=== PATIENT | male | born 1960 | race Caucasian/White ===

== ENCOUNTER 2019-02-06 04:40 | Emergency (ER) | payer OTHER ==
[2019-02-06] MEDS ORDERED: Sodium Chloride 0.9% 1000 ML 1,000 ML ONE (05:09)
--- NOTE | 2019-02-06 05:21 | ERPHSYRPT ---
- History of Present Illness Time Seen by Provider: 02/06/19 05:00 Historian: patient, family Exam Limitations: no limitations Patient Subjective Stated Complaint: Chest pain Triage Nursing Assessment: Patient ambulated into ED and transferred self to bed. Patient A+O X3. Patient's skin pink, warm and dry. Patient complains of chest pain intermittent sharp pain 4/10 that radiates down left arm that is constant sharp. Patient states pain in left arm started around 1800 with chest pain started prior to arrival. Patient's lungs clear a/p yakelin. No edema noted. Heart tones audible. No shortness of breath noted. Patient states he has had diarrhea for the past several days. Physician History: 58 y/o obese white male with h/o of htn presents with first with left upper ext at 1800 last pm. his left upper ext pain persisted. pt went to sleep and then he began having sharp left ant cp. pt denies soa. pt states he has had flu like sx for 3 weeks of intermittent nausea and diarrhea. pt did have a more formed stool yesterday. Timing/Duration: yesterday Activities at Onset: none Location: substernal Chest Pain Radiation: arm (left) Severity of Pain-Max: mild Severity of Pain-Current: mild Modifying Factors: Improves With: nothing Associated Symptoms: denies symptoms Prior Chest Pain/Cardiac Workup: no prior cardiac workup Nitro Today/Relief: no nitro taken today Aspirin Treatment Today: no aspirin today Allergies/Adverse Reactions: No Known Drug Allergies Allergy (Verified 02/06/19 04:55) Home Medications: Carvedilol 6.25 mg [Coreg 6.25 MG] 6.25 mg PO BID 06/07/12 [History] Esomeprazole Magnesium [Nexium] 40 mg PO DAILY 06/07/12 [History] Aspirin 81 gm Chew [Baby Aspirin 81 mg Chew] 1 tab PO DAILY 02/06/19 [ History] Losartan/Hydrochlorothiazide [Losartan-Hctz 100-12.5 mg Tab] 1 tab PO DAILY 12/18 [History] Hx Influenza Vaccination/Date Given: No Hx Pneumococcal Vaccination/Date Given: No Immunizations Up to Date: Yes - Review of Systems Constitutional: No Symptoms Eyes: No Symptoms Ears, Nose, & Throat: No Symptoms Respiratory: No Symptoms Cardiac: Chest Pain Abdominal/Gastrointestinal: No Symptoms Genitourinary Symptoms: No Symptoms Musculoskeletal: No Symptoms Skin: No Symptoms Neurological: No Symptoms Psychological: No Symptoms Endocrine: No Symptoms Hematologic/Lymphatic: No Symptoms Immunological/Allergic: No Symptoms All Other Systems: Reviewed and Negative - Past Medical History Pertinent Past Medical History: Yes Neurological History: No Pertinent History ENT History: No Pertinent History Cardiac History: Hypertension Respiratory History: Sleep Apnea Endocrine Medical History: No Pertinent History Musculoskeletal History: Fractures GI Medical History: GERD History: No Pertinent History Psycho-Social History: No Pertinent History Male Reproductive Disorders: No Pertinent History - Past Surgical History Past Surgical History: Yes Neuro Surgical History: No Pertinent History Cardiac: No Pertinent History Respiratory: No Pertinent History Gastrointestinal: No Pertinent History Genitourinary: No Pertinent History Musculoskeletal: Orthopedic Surgery, Other Male Surgical History: No Pertinent History Other Surgical History: left foot and leg left hand - Social History Smoking Status: Former smoker Exposure to second hand smoke: Yes Drug Use: none Patient Lives Alone: No - Nursing Vital Signs Nursing Vital Signs: Initial Vital Signs Temperature 98.6 F 02/06/19 04:44 Pulse Rate 60 02/06/19 04:44 Respiratory Rate 19 02/06/19 04:44 Blood Pressure 143/79 02/06/19 04:44 O2 Sat by Pulse Oximetry 97 02/06/19 04:44 Pain Scale Pain Intensity 2 - Physical Exam General Appearance: no apparent distress Eye Exam: PERRL/EOMI Ears, Nose, Throat Exam: normal ENT inspection, moist mucous membranes Neck Exam: normal inspection, non-tender, supple, full range of motion Respiratory Exam: normal breath sounds, chest tenderness, lungs clear, airway intact, No respiratory distress Cardiovascular Exam: regular rate/rhythm, normal heart sounds, normal peripheral pulses Gastrointestinal/Abdomen Exam: soft, normal bowel sounds, No tenderness Rectal Exam: not done Back Exam: normal inspection, normal range of motion, No CVA tenderness, No vertebral tenderness Extremity Exam: normal inspection, normal range of motion, pelvis stable Neurologic Exam: alert, oriented x 3, cooperative, help desk support specialist II-XII nml as tested Skin Exam: normal color, warm, dry Lymphatic Exam: No adenopathy SpO2 Interpretation: normal SpO2: 97 O2 Delivery: Room Air - Course Nursing assessment & vital signs reviewed: Yes EKG Interpreted by Me: RATE (57), Sinus Rhythm, NORMAL AXIS, NORMAL INTERVALS, NORMAL QRS, Other (no comparison ekg. left ant fascicular block ) Ordered Tests: Active Orders 24 hr Category Date Time Status [facility] STAT Care 02/06/19 05:29 Active EKG-ER Only STAT Care 02/06/19 05:25 Active IV Insertion STAT Care 02/06/19 05:25 Active Pulse Oximetry (ED) STAT Care 02/06/19 05:25 Active CHEST 1 VIEW (PORTABLE) Stat Exams 02/06/19 05:28 Taken CBC W DIFF Stat Lab 02/06/19 05:00 Completed CMP Stat Lab 02/06/19 05:00 Completed D-DIMER QUANTITATION Stat Lab 02/06/19 05:00 Completed NT PRO BNP Stat Lab 02/06/19 05:00 Completed TROPONIN Q3H Lab 02/06/19 05:00 Completed TROPONIN Q3H Lab 02/06/19 08:30 Ordered TROPONIN Q3H Lab 02/06/19 11:30 Ordered TROPONIN Q3H Lab 02/06/19 14:30 Ordered TROPONIN Q3H Lab 02/06/19 17:30 Ordered Medication Summary Generic Name Dose Route Start Last Admin Trade Name Freq PRN Reason Stop Dose Admin Sodium Chloride 1,000 mls @ 100 mls/hr 02/06/19 05:30 02/06/19 05:37 Sodium Chloride 0.9% 1000 Ml IV 03/08/19 05:29 100 mls/hr .Q10H LEXII Administration Discontinued Medications Generic Name Dose Route Start Last Admin Trade Name Freq PRN Reason Stop Dose Admin Aspirin 324 mg 02/06/19 05:25 02/06/19 05:38 Baby Aspirin 81 Mg Chew PO 02/06/19 05:26 324 mg STAT ONE Administration Aspirin Confirm 02/06/19 06:33 Baby Aspirin 81 Mg Chew Administered 02/06/19 06:34 Dose 324 mg .ROUTE .STK-MED ONE Sodium Chloride Confirm 02/06/19 05:09 Sodium Chloride 0.9% 1000 Ml Administered 02/06/19 05:10 Dose 1,000 mls @ ud .ROUTE .STK-MED ONE Lab/Rad Data: Laboratory Result Diagrams 02/06/19 05:00 02/06/19 05:00 Laboratory Results 02/06/19 02/06/19 02/06/19 Range/Units 06:01 05:00 05:00 WBC (4.0-10.5) K/mm3 RBC (4.1-5.6) M/mm3 Hgb (12.5-18.0) gm/dl Hct (42-50) % MCV (78-100) fl MCH (26-32) pg MCHC (32-36) g/dl RDW (11.5-14.0) % Plt Count (150-450) K/mm3 MPV (6-9.5) fl Gran % (36.0-66.0) % Eos # (Auto) (0-0.5) Absolute Lymphs (auto) (1.0-4.6) Absolute Monos (auto) (0.0-1.3) Lymphocytes % (24.0-44.0) % Monocytes % (0.0-12.0) % Eosinophils % (0.00-5.0) % Basophils % (0.0-0.4) % Absolute Granulocytes (1.4-6.9) Basophils # (0-0.4) D-Dimer 444 (215-500) ng/mL Sodium (137-145) mmol/L Potassium (3.5-5.1) mmol/L Chloride (98-107) mmol/L Carbon Dioxide (22-30) mmol/L Anion Gap (5-15) MEQ/L BUN (9-20) mg/dL Creatinine (0.66-1.25) mg/dL Estimated GFR ML/MIN Glucose (74-106) mg/dL Calcium (8.4-10.2) mg/dL Total Bilirubin (0.2-1.3) mg/dL AST (17-59) U/L ALT (0-50) U/L Alkaline Phosphatase (38-126) U/L Troponin I < 0.012 (0.000-0.034) ng/mL NT-Pro-B Natriuret Pep (0-900) pg/mL Serum Total Protein (6.3-8.2) g/dL Albumin (3.5-5.0) g/dL Influenza Type A Ag NEGATIVE (NEGATIVE) Influenza Type B Ag NEGATIVE (NEGATIVE) RSV (PCR) NEGATIVE (Negative) 02/06/19 02/06/19 Range/Units 05:00 05:00 WBC 9.5 (4.0-10.5) K/mm3 RBC 5.21 (4.1-5.6) M/mm3 Hgb 14.9 (12.5-18.0) gm/dl Hct 44.5 (42-50) % MCV 85.4 (78-100) fl MCH 28.6 (26-32) pg MCHC 33.5 (32-36) g/dl RDW 14.2 H (11.5-14.0) % Plt Count 260 (150-450) K/mm3 MPV 9.6 H (6-9.5) fl Gran % 67.4 H (36.0-66.0) % Eos # (Auto) 0.32 (0-0.5) Absolute Lymphs (auto) 1.88 (1.0-4.6) Absolute Monos (auto) 0.85 (0.0-1.3) Lymphocytes % 19.9 L (24.0-44.0) % Monocytes % 9.0 (0.0-12.0) % Eosinophils % 3.4 (0.00-5.0) % Basophils % 0.3 (0.0-0.4) % Absolute Granulocytes 6.37 (1.4-6.9) Basophils # 0.03 (0-0.4) D-Dimer (215-500) ng/mL Sodium 139 (137-145) mmol/L Potassium 3.7 (3.5-5.1) mmol/L Chloride 102 (98-107) mmol/L Carbon Dioxide 26 (22-30) mmol/L Anion Gap 14.9 (5-15) MEQ/L BUN 15 (9-20) mg/dL Creatinine 0.80 (0.66-1.25) mg/dL Estimated GFR > 60.0 ML/MIN Glucose 106 (74-106) mg/dL Calcium 8.2 L (8.4-10.2) mg/dL Total Bilirubin 0.80 (0.2-1.3) mg/dL AST 31 (17-59) U/L ALT 41 (0-50) U/L Alkaline Phosphatase 84 (38-126) U/L Troponin I (0.000-0.034) ng/mL NT-Pro-B Natriuret Pep 28.4 (0-900) pg/mL Serum Total Protein 7.6 (6.3-8.2) g/dL Albumin 4.1 (3.5-5.0) g/dL Influenza Type A Ag (NEGATIVE) Influenza Type B Ag (NEGATIVE) RSV (PCR) (Negative) - Progress Progress: improved Air Movement: good Progress Note: 02/06/19 06:23 cxr-mild cardiomegaly. no acute process. 02/06/19 06:24 pt states no cp and feeling better Blood Culture(s) Obtained: No Antibiotics given: No Counseled pt/family regarding: lab results, diagnosis, need for follow-up, rad results - Departure Departure Disposition: Home Clinical Impression: Chest pain Condition: Stable Critical Care Time: No Referrals: PERNELL CHAENY [CONSULTING PHYSICIAN] - Additional Instructions: drink plenty of fluids. follow up with primary doctor for further management.
[2019-02-06 05:36] LABS: Absolute Neutrophil Ct (ANC) 6.37 (1.4-6.9); BASOPHIL % 0.3 % (0.0-0.4); Basophil (Absolute #) 0.03 (0-0.4); Eosinophil % 3.4 % (0.00-5.0); Eosinophil (Absolute #) 0.32 (0-0.5); Hematocrit 44.5 % (42-50); Hemoglobin 14.9 gm/dl (12.5-18.0); Lymphocyte (Absolute #) 1.88 (1.0-4.6); Lymphocytes % 19.9 % (24.0-44.0); Mean Cell Volume 85.4 fl (78-100); Mean Corpuscular Hemoglobin 28.6 pg (26-32); Mean Corpuscular Hgb Concent. 33.5 g/dl (32-36); Mean Platelet Volume 9.6 fl (6-9.5); Monocyte (Absolute #) 0.85 (0.0-1.3); Neutrophil % 67.4 % (36.0-66.0); Platelet Count 260 K/mm3 (150-450); Red Blood Count 5.21 M/mm3 (4.1-5.6); Red Cell Distribution Width 14.2 % (11.5-14.0); White Blood Count 9.5 K/mm3 (4.0-10.5)
[2019-02-06] MEDS: Sodium Chloride 0.9% 1000 ML 1,000 ML IV SCH (05:37)
[2019-02-06] MEDS: BABY ASPIRIN 81 MG CHEW PO ONE (05:38)
[2019-02-06 05:57] LABS: ALBUMIN 4.1 g/dL (3.5-5.0); ALKALINE PHOSPHATASE 84 U/L (38-126); ANION GAP 14.9 MEQ/L (5-15); BLOOD UREA NITROGEN 15 mg/dL (9-20); CHLORIDE 102 mmol/L (98-107); Calcium 8.2 mg/dL (8.4-10.2); Carbon Dioxide 26 mmol/L (22-30); Glucose 106 mg/dL (74-106); NT PRO BNP 28.4 pg/mL (0-900); Potassium 3.7 mmol/L (3.5-5.1); SGOT/AST 31 U/L (17-59); SGPT/ALT 41 U/L (0-50); SODIUM 139 mmol/L (137-145); Total Protein 7.6 g/dL (6.3-8.2)
[2019-02-06 06:05] VITALS: BP 112/64; PULSE 56
[2019-02-06 06:25] VITALS: O2SAT 97
[2019-02-06] MEDS ORDERED: BABY ASPIRIN 81 MG CHEW ONE (06:33)
[2019-02-06 06:39] LABS: INFLUENZA A NEGATIVE (NEGATIVE); INFLUENZA B NEGATIVE (NEGATIVE); RESPIRATORY SYNCTIAL VIRUS NEGATIVE (Negative)
--- NOTE | 2019-02-06 09:38 | XRAY ---
Indication: Chest pain. Comparison: August 16, 2017. Portable apical lordotic chest remains clear. Heart is borderline enlarged. Bony thorax intact again with mild degenerative changes. Impression: Borderline cardiomegaly in a otherwise nonacute chest.
== END 2019-02-06 07:02 | disposition home or self-care (01) ==
LOC: ED 04:40
DX: R07.9 Chest pain, unspecified (principal)
CPT/HCPCS: 36000; 36415; 71045; 80053; 83880; 84484; 85025; 85379; 87631; 93005; 93041; 94760; 96360; 99284; A9270-GY

== ENCOUNTER 2020-12-26 13:36 | Emergency (ER) | payer OTHER ==
--- NOTE | 2020-12-26 13:40 | ERPHSYRPT ---
- History of Present Illness Time Seen by Provider: 12/26/20 13:40 Historian: patient, family Exam Limitations: no limitations Physician History: This is a 60-year-old obese white male patient of Dr. Da Silva who presents with sudden onset of sharp substernal central chest pain anteriorly without radiation and the onset occurred approximately 11:00 AM. Patient has a history of hypertension and gastroesophageal reflux disease. He does see a boat carpenter mechanic, Dr. Damon. He also has history of sleep apnea. He is obese. Patient has never had a myocardial infarction or any known coronary artery disease. Timing/Duration: today Activities at Onset: none Quality: aching Location: substernal, central Chest Pain Radiation: no radiation Severity of Pain-Max: mild Severity of Pain-Current: mild Modifying Factors: Improves With: nothing Associated Symptoms: denies symptoms Nitro Today/Relief: no nitro taken today Aspirin Treatment Today: no aspirin today Allergies/Adverse Reactions: No Known Drug Allergies Allergy (Verified 12/26/20 13:38) Home Medications: Carvedilol 6.25 mg [Coreg 6.25 MG] 6.25 mg PO BID 06/07/12 [History] Esomeprazole Magnesium [Nexium] 40 mg PO DAILY 06/07/12 [History] Aspirin 81 gm Chew [Baby Aspirin 81 mg Chew] 1 tab PO DAILY 02/06/19 [History] Losartan/Hydrochlorothiazide [Losartan-Hctz 100-12.5 mg Tab] 1 tab PO DAILY 02/06/19 [History] Hx Influenza Vaccination/Date Given: No Hx Pneumococcal Vaccination/Date Given: No Travel Risk - International Travel Have you traveled outside of the country in past 3 weeks: No - Coronavirus Screening Are you exhibiting any of the following symptoms?: No Close contact with a COVID-19 positive Pt in past 14-21 Days: No - Vaccine Status Have you recieved a Covid-19 vaccination: No - Review of Systems Constitutional: No Symptoms Eyes: No Symptoms Ears, Nose, & Throat: No Symptoms Respiratory: No Symptoms Cardiac: Chest Pain Abdominal/Gastrointestinal: No Symptoms Genitourinary Symptoms: No Symptoms Musculoskeletal: No Symptoms Skin: No Symptoms Neurological: No Symptoms Psychological: No Symptoms Endocrine: No Symptoms Hematologic/Lymphatic: No Symptoms Immunological/Allergic: No Symptoms All Other Systems: Reviewed and Negative - Past Medical History Pertinent Past Medical History: Yes Neurological History: No Pertinent History ENT History: No Pertinent History Cardiac History: Hypertension Respiratory History: Sleep Apnea Endocrine Medical History: No Pertinent History Musculoskeletal History: Fractures GI Medical History: GERD History: No Pertinent History Psycho-Social History: No Pertinent History Male Reproductive Disorders: No Pertinent History - Past Surgical History Past Surgical History: Yes Neuro Surgical History: No Pertinent History Cardiac: No Pertinent History Respiratory: No Pertinent History Gastrointestinal: No Pertinent History Genitourinary: No Pertinent History Musculoskeletal: Orthopedic Surgery, Other Male Surgical History: No Pertinent History Other Surgical History: left foot and leg left hand - Social History Smoking Status: Former smoker Exposure to second hand smoke: Yes Drug Use: none Patient Lives Alone: No - Nursing Vital Signs Nursing Vital Signs: Initial Vital Signs Temperature 98.2 F 12/26/20 13:39 Pulse Rate 81 12/26/20 13:39 Respiratory Rate 27 H 12/26/20 13:39 Blood Pressure 172/81 12/26/20 13:39 O2 Sat by Pulse Oximetry 98 12/26/20 13:39 Pain Scale Pain Intensity 3 - Physical Exam General Appearance: no apparent distress, alert, anxiety, obese Eye Exam: PERRL/EOMI, eyes nml inspection Ears, Nose, Throat Exam: normal ENT inspection, moist mucous membranes Neck Exam: normal inspection, non-tender, supple, full range of motion Respiratory Exam: normal breath sounds, chest tenderness, lungs clear, airway intact, No respiratory distress Cardiovascular Exam: regular rate/rhythm, normal heart sounds, normal peripheral pulses Gastrointestinal/Abdomen Exam: soft, normal bowel sounds, No tenderness Rectal Exam: not done Back Exam: normal inspection, normal range of motion, No CVA tenderness, No vertebral tenderness Extremity Exam: normal inspection, normal range of motion, pelvis stable Neurologic Exam: alert, oriented x 3, cooperative, dairy equipment repairer II-XII nml as tested, normal mood/affect, nml cerebellar function, nml station & gait, sensation nml Skin Exam: normal color, warm, dry Lymphatic Exam: No adenopathy SpO2 Interpretation: normal O2 Delivery: Room Air - Course Nursing assessment & vital signs reviewed: Yes EKG Interpreted by Me: RATE, Sinus Rhythm (75), LAFB, NORMAL INTERVALS, NORMAL QRS, NORMAL ST-T, Other (No acute ischemic changes. There is persistent left anterior fascicular block when compared to EKG dated 02/06/2019.) Ordered Tests: Medication Summary Discontinued Medications Generic Name Dose Route Start Last Admin Trade Name Rylee PRN Reason Stop Dose Admin Aspirin 324 mg 12/26/20 14:08 12/26/20 14:21 Baby Aspirin 81 Mg Chew PO 12/26/20 14:09 324 mg STAT ONE Administration Aspirin Confirm 12/26/20 14:15 Baby Aspirin 81 Mg Chew Administered 12/26/20 14:16 Dose 324 mg .ROUTE .STK-MED ONE Sodium Chloride 1,000 mls @ 50 mls/hr 12/26/20 14:15 12/26/20 14:22 Sodium Chloride 0.9% 1000 Ml IV 01/25/21 14:14 50 mls/hr .Q20H LEXII Administration Sodium Chloride Confirm 12/26/20 14:15 Sodium Chloride 0.9% 1000 Ml Administered 12/26/20 14:16 Dose 1,000 mls @ ud .ROUTE .STK-MED ONE Morphine Sulfate 2 mg 12/26/20 14:08 12/26/20 14:22 Morphine Sulfate 2 Mg Inj IV 12/26/20 14:09 2 mg STAT ONE Administration Morphine Sulfate Confirm 12/26/20 14:15 Morphine Sulfate 2 Mg Inj Administered 12/26/20 14:16 Dose 2 mg .ROUTE .STK-MED ONE Nitroglycerin 0.4 mg 12/26/20 14:08 12/26/20 14:22 Nitrostat 0.4 Mg (Ed) SL 12/26/20 14:09 0.4 mg STAT ONE Administration Nitroglycerin Confirm 12/26/20 14:15 Nitrostat 0.4 Mg (Ed) Administered 12/26/20 14:16 Dose 0.4 mg SL .STK-MED ONE Ondansetron HCl 4 mg 12/26/20 14:08 12/26/20 14:22 Zofran 4 Mg/2 Ml Vial IV 12/26/20 14:09 4 mg STAT ONE Administration Ondansetron HCl Confirm 12/26/20 14:15 Zofran 4 Mg/2 Ml Vial Administered 12/26/20 14:16 Dose 4 mg .ROUTE .STK-MED ONE Lab/Rad Data: Laboratory Result Diagrams 12/26/20 13:50 12/26/20 13:50 Laboratory Results 12/26/20 12/26/20 12/26/20 Range/Units 13:50 13:50 13:50 WBC (4.0-10.5) K/mm3 RBC (4.1-5.6) M/mm3 Hgb (12.5-18.0) gm/dl Hct (42-50) % MCV (78-100) fl MCH (26-32) pg MCHC (32-36) g/dl RDW (11.5-14.0) % Plt Count (150-450) K/mm3 MPV (7.5-11.0) fl Gran % (36.0-66.0) % Eos # (Auto) (0-0.5) Absolute Lymphs (auto) (1.0-4.6) Absolute Monos (auto) (0.0-1.3) Lymphocytes % (24.0-44.0) % Monocytes % (0.0-12.0) % Eosinophils % (0.00-5.0) % Basophils % (0.0-0.4) % Absolute Granulocytes (1.4-6.9) Basophils # (0-0.4) PT 13.3 H (9.4-12.5) SECONDS INR 1.13 (0.8-3.0) D-Dimer 495 (215-500) ng/mL Sodium 142 (137-145) mmol/L Potassium 3.8 (3.5-5.1) mmol/L Chloride 102 (98-107) mmol/L Carbon Dioxide 26 (22-30) mmol/L Anion Gap 17.1 H (5-15) MEQ/L BUN 21 H (9-20) mg/dL Creatinine 1.00 (0.66-1.25) mg/dL Estimated GFR > 60.0 ML/MIN Glucose 132 H (74-106) mg/dL Calcium 9.3 (8.4-10.2) mg/dL Total Bilirubin 1.00 (0.2-1.3) mg/dL AST 24 (17-59) U/L ALT 18 (0-50) U/L Alkaline Phosphatase 76 (38-126) U/L Troponin I 0.076 H* (0.000-0.034) ng/mL NT-Pro-B Natriuret Pep 95.6 (0-900) pg/mL Serum Total Protein 7.9 (6.3-8.2) g/dL Albumin 4.6 (3.5-5.0) g/dL 12/26/20 Range/Units 13:50 WBC 10.3 (4.0-10.5) K/mm3 RBC 5.31 (4.1-5.6) M/mm3 Hgb 15.2 (12.5-18.0) gm/dl Hct 46.6 (42-50) % MCV 87.8 (78-100) fl MCH 28.6 (26-32) pg MCHC 32.6 (32-36) g/dl RDW 14.2 H (11.5-14.0) % Plt Count 275 (150-450) K/mm3 MPV 9.7 (7.5-11.0) fl Gran % 85.2 H (36.0-66.0) % Eos # (Auto) 0.22 (0-0.5) Absolute Lymphs (auto) 0.79 L (1.0-4.6) Absolute Monos (auto) 0.51 (0.0-1.3) Lymphocytes % 7.6 L (24.0-44.0) % Monocytes % 4.9 (0.0-12.0) % Eosinophils % 2.1 (0.00-5.0) % Basophils % 0.2 (0.0-0.4) % Absolute Granulocytes 8.80 H (1.4-6.9) Basophils # 0.02 (0-0.4) PT (9.4-12.5) SECONDS INR (0.8-3.0) D-Dimer (215-500) ng/mL Sodium (137-145) mmol/L Potassium (3.5-5.1) mmol/L Chloride (98-107) mmol/L Carbon Dioxide (22-30) mmol/L Anion Gap (5-15) MEQ/L BUN (9-20) mg/dL Creatinine (0.66-1.25) mg/dL Estimated GFR ML/MIN Glucose (74-106) mg/dL Calcium (8.4-10.2) mg/dL Total Bilirubin (0.2-1.3) mg/dL AST (17-59) U/L ALT (0-50) U/L Alkaline Phosphatase (38-126) U/L Troponin I (0.000-0.034) ng/mL NT-Pro-B Natriuret Pep (0-900) pg/mL Serum Total Protein (6.3-8.2) g/dL Albumin (3.5-5.0) g/dL - Progress Progress: improved, re-examined Air Movement: good Progress Note: 12/26/20 15:25 Chest x-ray shows no acute cardiopulmonary process. Medical decision making: This patient had abrupt onset of anterior chest pain that was sharp and measured to 5-6 out of 10 without radiation. His EKG does not show any acute ischemic changes. However his initial troponin has returned elevated at 0.076. Patient states with the treatment of aspirin, nitroglycerin and morphine his pain completely resolved. However, reevaluation at this time states that he does notice it returning at a level of 1-2 out of 10. We are attempting to transfer this patient to [facility] either [facility] or [facility] depending on who has beds. Blood Culture(s) Obtained: No Antibiotics given: No Counseled pt/family regarding: lab results, diagnosis, rad results - Departure Departure Disposition: Transfer Clinical Impression: Chest pain in adult, Hypertension, Elevated troponin Condition: Stable Critical Care Time: No Critical Care Time(excluding separately billable procedures): Critical 30-74 mins Referrals: CECIL DA SILVA MD [Primary Care Provider] - Additional Instructions: Take your medication as prescribed. Follow-up with your primary care physician and boat carpenter mechanic for further management.
[2020-12-26] MEDS ORDERED: MORPHINE SULFATE 2 MG INJ IV ONE (14:08)
[2020-12-26] MEDS ORDERED: Nitrostat 0.4 MG (ED) SL ONE ×2 (14:08→14:15)
[2020-12-26] MEDS ORDERED: Zofran 4 MG/2 ML VIAL IV ONE (14:08)
[2020-12-26] MEDS ORDERED: BABY ASPIRIN 81 MG CHEW PO ONE (14:08)
[2020-12-26 14:15] LABS: INR 1.13 (0.8-3.0); PROTIME 13.3 SECONDS (9.4-12.5)
[2020-12-26] MEDS ORDERED: Sodium Chloride 0.9% 1000 ML 1,000 ML ONE (14:15)
[2020-12-26] MEDS ORDERED: MORPHINE SULFATE 2 MG INJ ONE (14:15)
[2020-12-26] MEDS ORDERED: BABY ASPIRIN 81 MG CHEW ONE (14:15)
[2020-12-26] MEDS ORDERED: Zofran 4 MG/2 ML VIAL ONE (14:15)
[2020-12-26] MEDS ORDERED: Sodium Chloride 0.9% 1000 ML 1,000 ML IV SCH (14:15)
[2020-12-26 14:21] LABS: BASOPHIL % 0.2 % (0.0-0.4); Basophil (Absolute #) 0.02 (0-0.4); Eosinophil % 2.1 % (0.00-5.0); Eosinophil (Absolute #) 0.22 (0-0.5); Hematocrit 46.6 % (42-50); Hemoglobin 15.2 gm/dl (12.5-18.0); Lymphocyte (Absolute #) 0.79 (1.0-4.6); Lymphocytes % 7.6 % (24.0-44.0); Mean Cell Volume 87.8 fl (78-100); Mean Corpuscular Hemoglobin 28.6 pg (26-32); Mean Corpuscular Hgb Concent. 32.6 g/dl (32-36); Mean Platelet Volume 9.7 fl (7.5-11.0); Monocyte (Absolute #) 0.51 (0.0-1.3); Monocytes % 4.9 % (0.0-12.0); Neutrophil % 85.2 % (36.0-66.0); Platelet Count 275 K/mm3 (150-450); Red Blood Count 5.31 M/mm3 (4.1-5.6); Red Cell Distribution Width 14.2 % (11.5-14.0); White Blood Count 10.3 K/mm3 (4.0-10.5)
[2020-12-26 14:29] LABS: ALBUMIN 4.6 g/dL (3.5-5.0); ALKALINE PHOSPHATASE 76 U/L (38-126); ANION GAP 17.1 MEQ/L (5-15); BLOOD UREA NITROGEN 21 mg/dL (9-20); CHLORIDE 102 mmol/L (98-107); Calcium 9.3 mg/dL (8.4-10.2); Carbon Dioxide 26 mmol/L (22-30); EST GLOMERULAR FILTRATION RATE > 60.0 ML/MIN; Glucose 132 mg/dL (74-106); NT PRO BNP 95.6 pg/mL (0-900); Potassium 3.8 mmol/L (3.5-5.1); SGOT/AST 24 U/L (17-59); SGPT/ALT 18 U/L (0-50); SODIUM 142 mmol/L (137-145); Total Protein 7.9 g/dL (6.3-8.2)
--- NOTE | 2020-12-26 14:32 | XRAY ---
Indication: Chest pain. Comparison: February 06, 2019. Portable apical lordotic chest remains clear. Heart not enlarged. Bony thorax intact again with mild degenerative changes. No new/acute findings.
[2020-12-26 16:10] VITALS: BP 101/45; PULSE 78; O2SAT 98
== END 2020-12-26 16:11 | disposition short-term general hospital (02) ==
LOC: ED 13:36
DX: R07.9 Chest pain, unspecified (principal); I10 Essential (primary) hypertension; R79.89 Other specified abnormal findings of blood chemistry; Z79.899 Other long term (current) drug therapy
CPT/HCPCS: 36000; 36415; 71045; 80053; 83880; 84484; 85025; 85379; 85610; 93005; 93041; 94760; 96374; 96375; 99285; J2270; J2405; A9270-GY

== ENCOUNTER 2021-04-07 08:03 | Emergency (ER) | payer OTHER ==
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
[2021-04-07 08:18] VITALS: O2SAT 98
[2021-04-07] MEDS ORDERED: Zofran 4 MG/2 ML VIAL IV ONE (08:22)
[2021-04-07 08:29] LABS: Absolute Neutrophil Ct (ANC) 5.19 (1.4-6.9); BASOPHIL % 0.3 % (0.0-0.4); Basophil (Absolute #) 0.02 (0-0.4); Eosinophil % 8.2 % (0.00-5.0); Eosinophil (Absolute #) 0.63 (0-0.5); Hematocrit 47.2 % (42-50); Hemoglobin 15.2 gm/dl (12.5-18.0); Lymphocyte (Absolute #) 1.31 (1.0-4.6); Lymphocytes % 17.1 % (24.0-44.0); Mean Cell Volume 86.4 fl (78-100); Mean Corpuscular Hemoglobin 27.8 pg (26-32); Mean Corpuscular Hgb Concent. 32.2 g/dl (32-36); Mean Platelet Volume 9.4 fl (7.5-11.0); Monocyte (Absolute #) 0.49 (0.0-1.3); Monocytes % 6.4 % (0.0-12.0); Platelet Count 249 K/mm3 (150-450); Red Blood Count 5.46 M/mm3 (4.1-5.6); Red Cell Distribution Width 14.5 % (11.5-14.0); White Blood Count 7.6 K/mm3 (4.0-10.5)
[2021-04-07 08:32] LABS: INR 1.13 (0.8-3.0); PROTIME 13.3 SECONDS (9.4-12.5)
[2021-04-07] MEDS ORDERED: Zofran 4 MG/2 ML VIAL ONE (08:33)
[2021-04-07] MEDS ORDERED: MORPHINE SULFATE 4 MG INJ IV ONE (08:38)
[2021-04-07 08:40] LABS: ALBUMIN 4.5 g/dL (3.5-5.0); ALKALINE PHOSPHATASE 125 U/L (38-126); AMYLASE 46 U/L (30-110); ANION GAP 15.6 MEQ/L (5-15); BLOOD UREA NITROGEN 17 mg/dL (9-20); CHLORIDE 104 mmol/L (98-107); Calcium 9.1 mg/dL (8.4-10.2); Carbon Dioxide 25 mmol/L (22-30); Creatinine 1 1.02 mg/dL (0.66-1.25); EST GLOMERULAR FILTRATION RATE > 60.0 ML/MIN; ETHYL ALCOHOL < 10 mg/dL (0-10); Glucose 119 mg/dL (74-106); LIPASE 96 U/L (23-300); Potassium 3.8 mmol/L (3.5-5.1); SGOT/AST 24 U/L (17-59); SGPT/ALT 24 U/L (0-50); SODIUM 140 mmol/L (137-145); Total Protein 7.6 g/dL (6.3-8.2)
[2021-04-07] MEDS ORDERED: MORPHINE SULFATE 4 MG INJ ONE ×2 (08:42→09:04)
[2021-04-07 09:19] LABS: Appearance CLEAR (CLEAR); Bilirubin NEGATIVE (NEGATIVE); Blood NEGATIVE Ery/ul (0-5); Glucose NEGATIVE (NEGATIVE); Ketones NEGATIVE (NEGATIVE); Leukocyte Esterase NEGATIVE (NEGATIVE); Nitrite NEGATIVE (NEGATIVE); Protein,Urine Dip 30 (Negative); RBC 0-2 /HPF (0-2); Specific Gravity 1.011 (1.005-1.025); Urobilinogen NEGATIVE mg/dL (0-1)
[2021-04-07 09:34] LABS: Amphetamine,Urine NEGATIVE (NEGATIVE); Barbiturate,Urine NEGATIVE (NEGATIVE); Benzodiazepine,Urine NEGATIVE (NEGATIVE); Cocaine,Urine NEGATIVE (NEGATIVE); Methadone,Urine NEGATIVE (NEGATIVE); Opiate,Urine NEGATIVE (NEGATIVE); PCP,Urine NEGATIVE (NEGATIVE); THC,Urine NEGATIVE (NEGATIVE)
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
[2021-04-07 10:19] VITALS: BP 176/94; PULSE 98
== END 2021-04-07 10:55 | disposition home or self-care (01) ==
LOC: ED 08:03
DX: S00.03XA Contusion of scalp, initial encounter (principal); S70.12XA Contusion of left thigh, initial encounter; V53.5XXA Driver of pick-up truck or van injured in collision with car, pick-up truck or van in traffic accident, initial encounter; M54.2 Cervicalgia; M25.552 Pain in left hip; M25.571 Pain in right ankle and joints of right foot; I10 Essential (primary) hypertension; Z79.01 Long term (current) use of anticoagulants; Z79.891 Long term (current) use of opiate analgesic
CPT/HCPCS: 36415; 70450; 72125; 73610; 73700; 74177; 80053; 80307; 81001; 82150; 83690; 85025; 85610; 93005; 96374; 96375; 99284; 99291; J2270; J2405; G0480

== ENCOUNTER 2023-01-01 20:06 | Emergency (ER) | payer OTHER ==
--- NOTE | 2023-01-01 20:17 | ERPHSYRPT ---
- History of Present Illness Time Seen by Provider: 01/01/23 20:17 Source: patient Exam Limitations: no limitations Physician History: 62-year-old male presents emergency room with a fishhook in his right thumb. He tried to get it out on his own and cut the hook just above the skin. No active bleeding. He is on antiplatelet from stent placement. Occurred: just prior to arrival Method of Injury: other (fishhook in thumb\) Severity of Pain-Max: mild Severity of Pain-Current: mild Extremities Pain Location: thumb: right Modifying Factors: Improves With: nothing. Worsens With: movement Associated Symptoms: none Allergies/Adverse Reactions: No Known Drug Allergies Allergy (Verified 01/01/23 20:22) Home Medications: Esomeprazole Magnesium [Nexium] 40 mg PO DAILY 06/07/12 [History] Atorvastatin Calcium [Lipitor] 80 mg PO HS 01/01/23 [History] Clopidogrel Bisulfate [Plavix] 1 tab PO DAILY 01/01/23 [History] Vitamin B Complex [B Complex] 1 tab PO DAILY 01/01/23 [History] lisinopriL [Zestril] 2.5 mg PO DAILY 01/01/23 [History] Hx Tetanus, Diphtheria Vaccination/Date Given: No Hx Influenza Vaccination/Date Given: No Hx Pneumococcal Vaccination/Date Given: No Travel Risk - Vaccine Status Have you recieved a Covid-19 vaccination: No Recreation Aide: Moderna - Vaccination Dates Date of 2cond Vaccination (if applicable): due today - Review of Systems Constitutional: No Symptoms Eyes: No Symptoms Ears, Nose, & Throat: No Symptoms Respiratory: No Symptoms Cardiac: No Symptoms Abdominal/Gastrointestinal: No Symptoms Genitourinary Symptoms: No Symptoms Musculoskeletal: No Symptoms Skin: Other (fishhook in thumb) Neurological: No Symptoms Psychological: No Symptoms Endocrine: No Symptoms Hematologic/Lymphatic: No Symptoms Immunological/Allergic: No Symptoms All Other Systems: Reviewed and Negative - Past Medical History Pertinent Past Medical History: Yes Neurological History: No Pertinent History ENT History: No Pertinent History Cardiac History: Hypertension Respiratory History: Sleep Apnea Endocrine Medical History: No Pertinent History Musculoskeletal History: Fractures GI Medical History: GERD History: No Pertinent History Psycho-Social History: No Pertinent History Male Reproductive Disorders: No Pertinent History Other Medical History: stent x 4 dalloul - Past Surgical History Past Surgical History: Yes Neuro Surgical History: No Pertinent History Cardiac: No Pertinent History Respiratory: No Pertinent History Gastrointestinal: No Pertinent History Genitourinary: No Pertinent History Musculoskeletal: Orthopedic Surgery, Other Male Surgical History: No Pertinent History Other Surgical History: left foot and leg left hand - Social History Smoking Status: Former smoker Exposure to second hand smoke: Yes Drug Use: none Patient Lives Alone: No - Nursing Vital Signs Nursing Vital Signs: Initial Vital Signs Temperature 97.8 F 01/01/23 20:21 Pulse Rate 60 01/01/23 20:21 Respiratory Rate 20 01/01/23 20:21 Blood Pressure 173/77 01/01/23 20:21 O2 Sat by Pulse Oximetry 99 01/01/23 20:21 Pain Scale Pain Intensity 0 - Physical Exam General Appearance: no apparent distress Hand Exam: soft tissue tenderness (1mm of mike sticking through the volar aspect of distal 1st phalanx, no active bleeding) Neuro/Tendon Exam: normal sensation, normal motor functions Mental Status Exam: alert, oriented x 3, cooperative Procedures - Laceration/Wound Repair Right Volar Finger Time of Procedure: 20:45 Wound Location: Right, hand (volar 1st distal phalanx) Wound's Depth, Shape: superficial Wound Explored: foreign body removed (fisshook) Irrigated: No Hibiclens Prep: Yes Anesthesia: digital block, 1% Lidocaine Volume Anesthetic (ccs): 5 Wound Debrided: minimal Wound Repaired With: sutures Suture Size/Type: 4-0, nylon Number of Sutures: 1 Layer Closure?: No Sterile Dressing Applied?: Yes Splint Applied?: No Sling Applied?: No Progress: Digital block performed w/ 5cc of 1% Lidocaine w/o epi. Barbed fishhook removed in its entirety after small incision w/ 11 blade scalpel. 1 4-0 Nylon suture placed for closure. Hemostatic at conclusion. Xeroform, 4x4 and coban dressing placed. Wound care instructions given. Remove suture in 5-7 days. Call PCP if any signs of infection. - Course Nursing assessment & vital signs reviewed: Yes - Radiology Exams Right Hand X-ray Interpretation: Interpreted by me, Other (foreign body 1st distal phalanx) Ordered Tests: Active Orders 24 hr Category Date Time Status HAND (2 VIEW) Stat Exams 01/01/23 20:23 Ordered - Progress Progress: improved Progress Note: See procedure note. No need for abx ppx. Tetanus given due to unknown last vaccine. Counseled pt/family regarding: diagnosis, need for follow-up, rad results Medical Desision Making - Diagnostic Testing Diagnostic test were ordered, analyzed, and reviewed by me: Yes Radiological Interpretation: Interpreted by me - Risk of complications The pt has a mod risk of morbidity or mortality based on: Need for prescription drug management - Departure Departure Disposition: Home Clinical Impression: Foreign body (FB) in soft tissue Condition: Good Critical Care Time: No Referrals: CECIL DA SILVA MD [Primary Care Provider] - Follow up/PCP as directed Instructions: Wound Care (DC), Stitches and kayleigh
[2023-01-01 20:22] VITALS: TEMP 97.8
[2023-01-01] MEDS ORDERED: Adacel Vial IM ONE ×2 (21:03→21:05)
[2023-01-01 21:51] VITALS: BP 144/68; PULSE 55; RESP 18; O2SAT 96
--- NOTE | 2023-01-02 07:33 | XRAY ---
Indication: Thumb foreign body. Comparison: None 2 view right hand demonstrates 1.2 cm curvilinear metallic wire distal 1st phalanx. No other bony, articular, or soft tissue abnormalities.
== END 2023-01-01 21:53 | disposition home or self-care (01) ==
LOC: ED 20:06
DX: S61.021A Laceration with foreign body of right thumb without damage to nail, initial encounter (principal); W26.8XXA Contact with other sharp object(s), not elsewhere classified, initial encounter; W45.8XXA Other foreign body or object entering through skin, initial encounter; I10 Essential (primary) hypertension; Z79.02 Long term (current) use of antithrombotics/antiplatelets; Z79.899 Other long term (current) drug therapy
CPT/HCPCS: 10120; 73120; 90471; 90715; 99283

== ENCOUNTER 2023-07-21 08:33 | Emergency (ER) | payer OTHER ==
[2023-07-21 08:46] VITALS: TEMP 100
--- NOTE | 2023-07-21 09:10 | ERPHSYRPT ---
- History of Present Illness Time Seen by Provider: 07/21/23 09:04 Source: patient Exam Limitations: no limitations Patient Subjective Stated Complaint: Pt states "I have been in my bed since tuesday with fever chills and diarrhea" Triage Nursing Assessment: Pt presented alert and oriented X 3, skin pwd. Pt ambulates with an upright steady gait, able to speak in clear full sentences. PT resting comfortably on the bed. Physician History: 62 years old male with history of coronary artery disease status post stenting, hypertension, hyperlipidemia presented in the ER with complains of fever cough [employer] here along with diarrhea for the last 4 days. Patient reports Tmax of 101. Reports having nausea and dry heaving without vomiting. Reports having 6- 10 episodes of loose stool every day, getting worse this morning with associated cramping intermittently moderate intensity. Reports coughing up clear followed by yellow and now green sputum with generalized chest soreness but no difficulty breathing. Denies any known sick contact. Allergies/Adverse Reactions: No Known Drug Allergies Allergy (Verified 01/01/23 20:22) Home Medications: Esomeprazole Magnesium [Nexium] 40 mg PO DAILY 06/07/12 [History] Atorvastatin Calcium [Lipitor] 80 mg PO HS 01/01/23 [History] Clopidogrel Bisulfate [Plavix] 1 tab PO DAILY 01/01/23 [History] Vitamin B Complex [B Complex] 1 tab PO DAILY 01/01/23 [History] lisinopriL [Zestril] 2.5 mg PO DAILY 01/01/23 [History] Hx Tetanus, Diphtheria Vaccination/Date Given: No Hx Influenza Vaccination/Date Given: No Hx Pneumococcal Vaccination/Date Given: No Travel Risk - International Travel Have you traveled outside of the country in past 3 weeks: No - Emerging Infectious Disease Are you exhibiting symptoms associated with any current EIDs: Yes Symptoms: Abdominal Pain, Diarrhea, Fever, Headaches/Body Aches/ - Review of Systems Constitutional: Fever, Chills, Fatigue, Weakness Eyes: No Symptoms Ears, Nose, & Throat: Nose Congestion, Throat Swelling Respiratory: Cough Cardiac: No Symptoms Abdominal/Gastrointestinal: Abdominal Pain, Nausea, Diarrhea Genitourinary Symptoms: No Symptoms Musculoskeletal: Myalgias Skin: No Symptoms Neurological: No Symptoms Psychological: No Symptoms Endocrine: No Symptoms Hematologic/Lymphatic: No Symptoms Immunological/Allergic: No Symptoms - Past Medical History Pertinent Past Medical History: Yes Neurological History: No Pertinent History ENT History: No Pertinent History Cardiac History: Hypertension Respiratory History: Sleep Apnea Endocrine Medical History: No Pertinent History Musculoskeletal History: Fractures GI Medical History: GERD History: No Pertinent History Psycho-Social History: No Pertinent History Male Reproductive Disorders: No Pertinent History Other Medical History: stent x 4 dalloul - Past Surgical History Past Surgical History: Yes Neuro Surgical History: No Pertinent History Cardiac: No Pertinent History Respiratory: No Pertinent History Gastrointestinal: No Pertinent History Genitourinary: No Pertinent History Musculoskeletal: Orthopedic Surgery, Other Male Surgical History: No Pertinent History Other Surgical History: left foot and leg left hand. left knee - Social History Smoking Status: Former smoker Exposure to second hand smoke: Yes Drug Use: none Patient Lives Alone: No - Nursing Vital Signs Nursing Vital Signs: Initial Vital Signs Temperature 100.0 F 07/21/23 08:41 Pulse Rate 72 07/21/23 08:41 Respiratory Rate 22 07/21/23 08:41 Blood Pressure 163/96 07/21/23 08:41 O2 Sat by Pulse Oximetry 93 L 07/21/23 08:41 Pain Scale Pain Intensity 0 - Physical Exam General Appearance: no apparent distress, alert Eye Exam: PERRL/EOMI Ears, Nose, Throat Exam: TMs normal, pharynx normal, moist mucous membranes, pharyngeal erythema Neck Exam: normal inspection, non-tender, supple, full range of motion Respiratory Exam: normal breath sounds, lungs clear Cardiovascular Exam: regular rate/rhythm, normal heart sounds Gastrointestinal/Abdomen Exam: soft, normal bowel sounds, tenderness (Mild generalized), No guarding Back Exam: normal inspection, normal range of motion Extremity Exam: normal inspection, normal range of motion Neurologic Exam: alert, oriented x 3, cooperative, data management II-XII nml as tested Skin Exam: normal color SpO2 Interpretation: normal SpO2: 93 O2 Delivery: Room Air Ordered Tests: Active Orders 24 hr Category Date Time Status ABDOMEN AND PELVIS W/0 CONTRAS [CT] Stat Exams 07/21/23 09:06 Completed CHEST 1 VIEW (PORTABLE) Stat Exams 07/21/23 09:05 Completed BLOOD CULTURE Stat Lab 07/21/23 09:25 Received CBC W DIFF Stat Lab 07/21/23 09:05 Completed CMP Stat Lab 07/21/23 09:25 Completed LIPASE Stat Lab 07/21/23 09:25 Completed Lactic Acid Stat Lab 07/21/23 09:05 Completed MAGNESIUM Stat Lab 07/21/23 09:25 Completed NT PRO BNPII Stat Lab 07/21/23 09:25 Completed PROCALCITONIN Stat Lab 07/21/23 09:25 Completed UA W/RFX UR CULTURE Stat Lab 07/21/23 09:06 Ordered Medication Summary Discontinued Medications Generic Name Dose Route Start Last Admin Trade Name Rylee PRN Reason Stop Dose Admin Acetaminophen 975 mg 07/21/23 09:09 07/21/23 09:24 Acetaminophen 325 Mg Tablet PO 07/21/23 09:10 975 mg STAT STA Administration Acetaminophen Confirm 07/21/23 09:18 Acetaminophen 325 Mg Tablet Administered 07/21/23 09:19 Dose 975 mg .ROUTE .STK-MED ONE Sodium Chloride 1,000 mls @ 999 mls/hr 07/21/23 09:05 07/21/23 09:24 Sodium Chloride 0.9% 1000 Ml IV 07/21/23 10:05 999 mls/hr .Q1H1M STA Administration Sodium Chloride Confirm 07/21/23 09:18 Sodium Chloride 0.9% 1000 Ml Administered 07/21/23 09:19 Dose 1,000 mls @ ud .ROUTE .STK-MED ONE Ondansetron HCl 4 mg 07/21/23 09:06 07/21/23 09:24 Ondansetron Hcl 4 Mg/2 Ml Vial IV 07/21/23 09:07 4 mg STAT ONE Administration Ondansetron HCl Confirm 07/21/23 09:18 Ondansetron Hcl 4 Mg/2 Ml Vial Administered 07/21/23 09:19 Dose 4 mg .ROUTE .STK-MED ONE Lab/Rad Data: Laboratory Result Diagrams 07/21/23 09:05 07/21/23 09:25 Laboratory Results 07/21/23 07/21/23 07/21/23 Range/Units 09:25 09:25 09:05 WBC (4.0-10.5) x10^3/uL RBC (4.1-5.6) x10^6/uL Hgb (12.5-18.0) g/dL Hct (42-50) % MCV (78-100) fL MCH (26-32) pg MCHC (32-36) g/dL RDW (11.5-14.0) % Plt Count (150-450) x10^3/uL MPV (7.5-11.0) fL Gran % (36.0-66.0) % Immature Gran % (Auto) (0.00-0.4) % Nucleat RBC Rel Count (0.00-0.1) % Eos # (Auto) (0-0.5) x10^3/uL Immature Gran # (Auto) (0.00-0.03) x10^3u/L Absolute Lymphs (auto) (1.0-4.6) x10^3/uL Absolute Monos (auto) (0.0-1.3) x10^3/uL Absolute Nucleated RBC (0.00-0.01) x10^3u/L Lymphocytes % (24.0-44.0) % Monocytes % (0.0-12.0) % Eosinophils % (0.00-5.0) % Basophils % (0.0-0.4) % Absolute Granulocytes (1.4-6.9) x10^3/uL Basophils # (0-0.4) x10^3/uL Sodium 136 (135-145) mmol/L Potassium 3.4 L (3.5-5.1) mmol/L Chloride 101 (98-107) mmol/L Carbon Dioxide 25 (22-30) mmol/L Anion Gap 12.9 (5-15) MEQ/L BUN 14 (9-20) mg/dL Creatinine 0.90 (0.66-1.25) mg/dL Estimated GFR 95.4 ML/MIN Glucose 96 (74-106) mg/dL Lactic Acid 1.0 (0.4-2.0) Calcium 7.9 L (8.4-10.2) mg/dL Magnesium 1.6 (1.6-2.3) mg/dL Total Bilirubin 1.00 (0.2-1.3) mg/dL AST 50 (17-59) U/L ALT 46 (0-50) U/L Alkaline Phosphatase 99 (38-126) U/L NT-Pro-B Natriuret Pep 163 (<300) pg/mL Serum Total Protein 6.7 (6.3-8.2) g/dL Albumin 3.7 (3.5-5.0) g/dL Lipase 95 (23-300) U/L Procalcitonin 0.151 H (0.030-0.080) ng/mL Influenza Type A Ag POSITIVE A (NEGATIVE) Influenza Type B Ag NEGATIVE (NEGATIVE) RSV (PCR) NEGATIVE (NEGATIVE) SARS-CoV-2 (PCR) NEGATIVE (NEGATIVE) 07/21/23 Range/Units 09:05 WBC 3.8 L (4.0-10.5) x10^3/uL RBC 5.07 (4.1-5.6) x10^6/uL Hgb 14.6 (12.5-18.0) g/dL Hct 44.0 (42-50) % MCV 86.8 (78-100) fL MCH 28.8 (26-32) pg MCHC 33.2 (32-36) g/dL RDW 13.3 (11.5-14.0) % Plt Count 157 (150-450) x10^3/uL MPV 9.4 (7.5-11.0) fL Gran % 76.2 H (36.0-66.0) % Immature Gran % (Auto) 0.3 (0.00-0.4) % Nucleat RBC Rel Count 0.0 (0.00-0.1) % Eos # (Auto) 0 (0-0.5) x10^3/uL Immature Gran # (Auto) 0.01 (0.00-0.03) x10^3u/L Absolute Lymphs (auto) 0.48 L (1.0-4.6) x10^3/uL Absolute Monos (auto) 0.41 (0.0-1.3) x10^3/uL Absolute Nucleated RBC 0.00 (0.00-0.01) x10^3u/L Lymphocytes % 12.5 L (24.0-44.0) % Monocytes % 10.7 (0.0-12.0) % Eosinophils % 0.0 (0.00-5.0) % Basophils % 0.3 (0.0-0.4) % Absolute Granulocytes 2.92 (1.4-6.9) x10^3/uL Basophils # 0.01 (0-0.4) x10^3/uL Sodium (135-145) mmol/L Potassium (3.5-5.1) mmol/L Chloride (98-107) mmol/L Carbon Dioxide (22-30) mmol/L Anion Gap (5-15) MEQ/L BUN (9-20) mg/dL Creatinine (0.66-1.25) mg/dL Estimated GFR ML/MIN Glucose (74-106) mg/dL Lactic Acid (0.4-2.0) Calcium (8.4-10.2) mg/dL Magnesium (1.6-2.3) mg/dL Total Bilirubin (0.2-1.3) mg/dL AST (17-59) U/L ALT (0-50) U/L Alkaline Phosphatase (38-126) U/L NT-Pro-B Natriuret Pep (<300) pg/mL Serum Total Protein (6.3-8.2) g/dL Albumin (3.5-5.0) g/dL Lipase (23-300) U/L Procalcitonin (0.030-0.080) ng/mL Influenza Type A Ag (NEGATIVE) Influenza Type B Ag (NEGATIVE) RSV (PCR) (NEGATIVE) SARS-CoV-2 (PCR) (NEGATIVE) - Progress Progress: improved, re-examined Air Movement: good Progress Note: 07/21/23 11:08 62-year-old is evaluated in the ER for cough congestion with diarrhea and nausea along with low-grade fever for the last 4 days with progressive worsening. Is given Tylenol and Zofran along with fluids, on reevaluation feeling much better. Patient is not in any distress. Lungs fairly clear to auscultation. Workup showed white count of 3.8, chemistries fairly unremarkable. Has lactate of 0.1 5. Chest x-ray negative for any acute cardiopulmonary findings. I have obtain CT abdomen pelvis without contrast which is negative for any acute intra- abdominal pelvic findings. Patient has a positive influenza. Later on patient told me that he removed a tick from his penis few days ago without any rash or swelling. Tick panel was obtained. Patient has a positive influenza A which is probably the cause of his symptoms. I will start him on Tamiflu. Since patient is coughing up green sputum which I believe patient initially has viral bronchitis and now have some bacterial colonization and with a positive procalcitonin I will give her a dose of Z-Horace as well. He is offered observation admission but he wants/prefers to go home which is reasonable. Recommended increase hydration and outpatient follow-up. Discussed signs symptoms of worsening needing return to ER which she seems understanding. Blood Culture(s) Obtained: Yes Antibiotics given: Yes Counseled pt/family regarding: lab results, diagnosis, need for follow-up, rad results Medical Desision Making - Diagnostic Testing Diagnostic test were ordered, analyzed, and reviewed by me: Yes Radiological Interpretation: Reviewed by me - Risk of complications The pt has a mod risk of morbidity or mortality based on: Need for prescription drug management - Departure Departure Disposition: Home Clinical Impression: Influenza A, Bronchitis Condition: Stable Critical Care Time: No Referrals: CECIL DA SILVA MD [Primary Care Provider] - Follow up with PCP 1 day Instructions: Cough, Adult (DC), Flu, Adult (DC) Additional Instructions: Drink plenty of fluids to keep yourself well-hydrated. Take Tylenol/ibuprofen as needed for aches and pains/fever chills. Continue with Mucinex. Take Zofran as needed for nausea. Follow-up with primary care for reevaluation. Return to ER for worsening of symptoms like persistent fever, worsening cough/vomiting/diarrhea etc. Prescriptions: Oseltamivir 75 mg [Tamiflu 75MG Capsule] 75 mg PO BID #10 cap Azithromycin 250 mg [Zithromax 250 MG TABLET] 250 mg PO ZPACK #6 tablet Ondansetron ODT 4 MG [Zofran Odt 4 mg] 1 ea PO QIDPRN PRN #10 tablet PRN Reason: n/v
[2023-07-21] MEDS ORDERED: Zofran 4 MG/2 ML VIAL ONE (09:18)
[2023-07-21] MEDS ORDERED: TYLENOL 325 MG ONE (09:18)
[2023-07-21] MEDS ORDERED: Sodium Chloride 0.9% 1000 ML 1,000 ML ONE (09:18)
--- NOTE | 2023-07-21 09:23 | XRAY ---
Indication: Fever and cough. Comparison: December 26, 2020 Portable apical lordotic chest remains clear. Heart not enlarged for AP portable technique. Bony thorax intact again with degenerative changes. Impression: Continued nonacute chest.
[2023-07-21] MEDS: Sodium Chloride 0.9% 1000 ML 1,000 ML IV STA (09:24)
[2023-07-21] MEDS: Zofran 4 MG/2 ML VIAL IV ONE (09:24)
[2023-07-21] MEDS: TYLENOL 325 MG PO STA (09:24)
[2023-07-21 09:37] LABS: Absolute Neutrophil Ct (ANC) 2.92 x10^3/uL (1.4-6.9); BASOPHIL % 0.3 % (0.0-0.4); Basophil (Absolute #) 0.01 x10^3/uL (0-0.4); Eosinophil (Absolute #) 0 x10^3/uL (0-0.5); Hemoglobin 14.6 g/dL (12.5-18.0); IMMATURE GRAN # 0.01 x10^3u/L (0.00-0.03); IMMATURE GRAN % 0.3 % (0.00-0.4); Lymphocyte (Absolute #) 0.48 x10^3/uL (1.0-4.6); Lymphocytes % 12.5 % (24.0-44.0); Mean Cell Volume 86.8 fL (78-100); Mean Corpuscular Hemoglobin 28.8 pg (26-32); Mean Corpuscular Hgb Concent. 33.2 g/dL (32-36); Mean Platelet Volume 9.4 fL (7.5-11.0); Monocyte (Absolute #) 0.41 x10^3/uL (0.0-1.3); Monocytes % 10.7 % (0.0-12.0); Neutrophil % 76.2 % (36.0-66.0); Platelet Count 157 x10^3/uL (150-450); Red Blood Count 5.07 x10^6/uL (4.1-5.6); Red Cell Distribution Width 13.3 % (11.5-14.0); White Blood Count 3.8 x10^3/uL (4.0-10.5)
[2023-07-21 10:13] LABS: ALBUMIN 3.7 g/dL (3.5-5.0); ANION GAP 12.9 MEQ/L (5-15); Calcium 7.9 mg/dL (8.4-10.2); Creatinine 1 0.9 mg/dL (0.66-1.25); EST GLOMERULAR FILTRATION RATE 95.4 ML/MIN; MAGNESIUM 1.6 mg/dL (1.6-2.3); PROCALCITONIN 0.151 ng/mL (0.030-0.080); Potassium 3.4 mmol/L (3.5-5.1); Total Protein 6.7 g/dL (6.3-8.2)
[2023-07-21 10:14] LABS: INFLUENZA B NEGATIVE (NEGATIVE); RESPIRATORY SYNCTIAL VIRUS NEGATIVE (NEGATIVE); SARS-CoV-2 Xpert Express NEGATIVE (NEGATIVE)
[2023-07-21 10:15] LABS: INFLUENZA A POSITIVE (NEGATIVE)
--- NOTE | 2023-07-21 10:17 | XRAY ---
Indication: Abdominal pain and diarrhea. Multiple contiguous axial images obtained through the abdomen and pelvis without contrast. Comparison: April 07, 2021 Lung bases again demonstrate scattered subsegmental atelectasis/scarring. No infiltrate or effusion. Heart not enlarged. Noncontrasted stomach and bowel loops nonobstructed again with normal appendix. Left lower kidney again demonstrates nonobstructing punctate calculus and cortical cyst. No free fluid/air. Remaining liver, gallbladder, pancreas, spleen, adrenal glands, kidneys, ureters, and bladder are unremarkable for noncontrast exam. Again mild scattered aortoiliac calcifications without AAA. Osseous structures intact again with mild degenerative changes throughout the visualized spine and both hips. Impression: 1. Again nonobstructing left renal micro-calculus, small left renal cyst, and chronic bony findings. 2. Remaining CT abdomen/pelvis without contrast exam continues to be negative.
[2023-07-21 11:12] VITALS: BP 136/80; PULSE 62; RESP 20
[2023-07-21 11:14] VITALS: O2SAT 93
[2023-07-21 11:19] LABS: Slide Review 1 YES
[2023-07-25 13:05] LABS: Babesia microti, PCR Negative (Negative)
== END 2023-07-21 11:22 | disposition home or self-care (01) ==
LOC: ED 08:33
DX: J10.1 Influenza due to other identified influenza virus with other respiratory manifestations (principal); J40 Bronchitis, not specified as acute or chronic; R50.9 Fever, unspecified; R05.1 Acute cough; R19.7 Diarrhea, unspecified; I10 Essential (primary) hypertension; E78.5 Hyperlipidemia, unspecified; Z79.02 Long term (current) use of antithrombotics/antiplatelets; Z79.899 Other long term (current) drug therapy
CPT/HCPCS: 0241U; 36000; 36415; 71045; 74176; 80053; 83605; 83690; 83735; 83880; 84145; 85025; 86617; 87040; 87484; 96360; 96374; 99284; J2405; A9270-GY